=== PATIENT | female | born 1950 | race Two or more races ===

== ENCOUNTER 2017-03-17 23:30 | Emergency (ER) | payer OTHER ==
--- NOTE | 2017-03-17 23:55 | PDOC ---
History of Present Illness - General History Source: Patient Exam Limitations: No Limitations - History of Present Illness Initial Comments: 03/18/17 00:00 The patient is a 66 year old female with significant past medical history of hypertension, hyperlipidemia, and diabetes who presents to the ED for left wrist pain prior to arrival. Patient denies any radiation of pain. Denies any trauma to the area. Patient is right-hand dominant. The patient denies fever, chills, cough, SOB, chest pain, and palpitations. The patient denies abdominal pain, nausea, vomiting, and diarrhea. Allergies: NKDA Social History: No alcohol, tobacco, or drug use reported. Past Surgical History: cholecystectomy PCP: Dr. Sarah Brady <Juliann Patterson - Last Filed: 03/18/17 01:26> - General History Source: Patient <StevenEarl hewitt - Last Filed: 03/23/17 19:26> - General Chief Complaint: Pain, Acute Stated Complaint: LT ARM PAIN Time Seen by Provider: 03/17/17 23:53 Past History <Juliann Patterson - Last Filed: 03/18/17 01:26> - Past Medical History Diabetes: Yes HTN: Yes Hypercholesterolemia: Yes - Surgical History Cholecystectomy: Yes - Psycho/Social/Smoking Cessation Hx Suicidal Ideation: No Smoking Status: No Smoking History: Never smoked Number of Cigarettes Smoked Daily: 0 <Earl Olivier - Last Filed: 03/23/17 19:26> - Past Medical History Allergies/Adverse Reactions: Allergies Allergy/AdvReac Type Severity Reaction Status Date / Time No Known Allergies Allergy Verified 03/17/17 23:52 Home Medications: Ambulatory Orders Amlodipine Besylate [Norvasc -] 5 mg PO DAILY 06/20/12 Losartan/Hydrochlorothiazide [Hyzaar 50-12.5 Tablet] 1 each PO DAILY 06/20/12 Simvastatin [Zocor] 20 mg PO DAILY 06/20/12 Ibuprofen [Motrin -] 600 mg PO QID #28 tablet 10/10/15 Glipizide [Glucotrol Xl] 2.5 mg PO DAILY 03/17/17 Metformin HCl [Glucophage -] 500 mg PO BID 03/17/17 Ibuprofen 800 mg PO TID #30 tablet 03/18/17 Oxycodone HCl/Acetaminophen [Percocet 5-325 mg Tablet] 1 - 2 tab PO Q6H #20 tablet MDD 4 03/18/17 Review of Systems - Review of Systems Able to Perform ROS?: Yes Comments:: 03/18/17 00:00 CONSTITUTIONAL: Absent: fever, no chills, no fatigue EYES: Absent: visual changes ENT: Absent: ear pain, no sore throat CARDIOVASCULAR: Absent: chest pain, no palpitations RESPIRATORY: Absent: cough, no SOB GI: Absent: abdominal pain, no nausea, no vomiting, no constipation, no diarrhea GENITOURINARY: Absent: dysuria, no frequency, no hematuria MUSCULOSKELETAL: +L wrist pain Absent: back pain, no myalgia SKIN: Absent: rash NEURO: Absent: headache <Juliann Patterson - Last Filed: 03/18/17 01:26> *Physical Exam - Vital Signs Last Vital Signs Temp Pulse Resp BP Pulse Ox 98 F 79 20 175/90 99 03/17/17 23:54 03/17/17 23:54 03/17/17 23:54 03/17/17 23:54 03/17/17 23:54 - Physical Exam Comments: 03/18/17 00:01 GENERAL: Well-appearing, well-nourished. No apparent distress. HEENT: Normocephalic, atraumatic. PERRL, EOM intact. CARDIOVASCULAR: Normal S1, S2. Regular rate and rhythm. PULMONARY: Clear to auscultation bilaterally. ABDOMEN: Soft, non-distended, non-tender. EXTREMITIES: Decreased ROM of left wrist secondary to pain. Swelling from just above the left wrist to the distal forearm. No gross deformities. SKIN: Warm, dry. No rash NEUROLOGICAL: No focal neurological deficits. <Juliann Patterson - Last Filed: 03/18/17 01:26> Heart Score/ECG Review - ECG Impressions Comment:: 03/18/17 00:22 NSR @71bpm L axis deviation RBBB Abnormal ECG <Juliann Patterson - Last Filed: 03/18/17 01:26> Medical Decision Making - Medical Decision Making 03/23/17 19:25 Dr. Olivier: The scribe's documentation has been prepared under my direction and personally reviewed by me in its entirery. I confirm that the note above accurately reflects all work, treatment, procedures, and medical decision making performed by me. <Earl Olivier - Last Filed: 03/23/17 19:26> *DC/Admit/Observation/Transfer - Attestations Scribe Attestion: 03/18/17 00:01 Documentation prepared by Juliann Patterson, acting as medical record retrieval specialist for Earl Olivier MD/DO. <Juliann Patterson - Last Filed: 03/18/17 01:26> - Discharge Dispostion Admit: No <Earl Olivier - Last Filed: 03/23/17 19:26> Diagnosis at time of Disposition: Musculoskeletal pain, Wrist pain, left - Discharge Dispostion Disposition: HOME Condition at time of disposition: Stable - Prescriptions Prescriptions: Ibuprofen 800 mg PO TID #30 tablet Oxycodone HCl/Acetaminophen [Percocet 5-325 mg Tablet] 1 - 2 tab PO Q6H #20 tablet MDD 4 - Referrals Referrals: Nela Brady [Primary Care Provider] - Irvin Joe MD [Staff Physician] - - Patient Instructions Printed Discharge Instructions: DI for Musculoskeletal Pain, DI for Wrist Pain Additional Instructions: take medication as directed. Please follow up with your doctor for re- evaluation. Print Language: HEBREW
[2017-03-17] MEDS ORDERED: IBUPROFEN 400 MG TABLET (FP) PO ONE (23:56)
[2017-03-17 23:57] VITALS: BP 175/90; PULSE 79; TEMP 98; BMI 27.9
[2017-03-18] MEDS ORDERED: IBUPROFEN 400 MG TABLET (FP) PO ONE (00:15)
[2017-03-18] MEDS ORDERED: OXYCODONE/APAP 5/325MG COMBO TABLET PO ONE (02:17)
[2017-03-18] MEDS ORDERED: OXYCODONE/APAP 5/325MG COMBO TABLET ONE (02:26)
--- NOTE | 2017-03-18 13:06 | EKG ---
Test Reason : Blood Pressure : / mmHG Vent. Rate : 071 BPM Atrial Rate : 071 BPM P-R Int : 168 ms QRS Dur : 144 ms QT Int : 432 ms P-R-T Axes : 049 -35 018 degrees QTc Int : 469 ms NORMAL SINUS RHYTHM LEFT AXIS DEVIATION RIGHT BUNDLE BRANCH BLOCK ABNORMAL ECG WHEN COMPARED WITH ECG OF 08-JAN-2016 13:15, T WAVE INVERSION LESS EVIDENT IN ANTERIOR LEADS Confirmed by TERESA DE LA PAZ, MIRANDA ([id number]) on 03/18/2017 1:06:00 PM Referred By: Confirmed By:MIRANDA MOORE MD
--- NOTE | 2017-03-18 14:17 | PDOC ---
Patient Follow-up (Call Back) - Post ED Follow - Up Chief Complaint: wrist Condition at time of discharge: Stable Disposition at time of original discharge: HOME Reason for Call Back: Radiology (triquetral fracture message left on voicemail to call back)
== END 2017-03-18 02:35 | disposition home or self-care (01) ==
LOC: JER 23:30
DX: M25.532 Pain in left wrist (principal); I10 Essential (primary) hypertension; E11.9 Type 2 diabetes mellitus without complications; Z79.84 Long term (current) use of oral hypoglycemic drugs; E78.5 Hyperlipidemia, unspecified
CPT/HCPCS: 73090-TC-LT; 73110-TC-LT; 73130-TC-LT; 93005; 93010; 99282-25

== ENCOUNTER 2022-03-22 20:47 | Emergency (ER) | payer OTHER ==
[2022-03-22 20:56] VITALS: BMI 27.9
[2022-03-22] MEDS ORDERED: ACETAMINOPHEN 1000 MG/100 ML BAG IVPB ONE (21:35)
[2022-03-22] MEDS ORDERED: SODIUM CHLORIDE 0.9% 500 ML INFUS.BAG IV ONE (21:35)
[2022-03-22 21:40] LABS: VENOUS BASE EXCESS 0.7 mmol/L (-2-2); VENOUS O2 SATURATION 74.3 % (70-80); VENOUS PCO2 40.9 mmHg (38-52); VENOUS PH 7.41 (7.310-7.410)
[2022-03-22] MEDS ORDERED: ACETAMINOPHEN INJECTION 100 ML IVPB ONE (21:43)
[2022-03-22 21:58] LABS: BASO % 0.4 % (0-2.0); EOS % 0.6 % (0-4.5); HEMATOCRIT 36.1 % (32.4-45.2); HEMOGLOBIN 12.1 GM/dL (10.7-15.3); LYMPH % 11.1 % (8-40); MCH 27.6 pg (25.7-33.7); MCHC 33.6 g/dl (32.0-36.0); MEAN CELL VOLUME 82.4 fl (80-96); MEAN PLT VOLUME 8.4 fl (7.5-11.1); MONO % 14.9 % (3.8-10.2); PLATELET COUNT 260 10^3/uL (134-434); RBC 4.38 M/mm3 (3.60-5.2); RDW 16.1 % (11.6-15.6); WHITE BLOOD COUNT 6.8 K/mm3 (4.0-10.0)
[2022-03-22 22:02] LABS: CALCIUM 9.6 mg/dL (8.5-10.1)
[2022-03-22 22:03] LABS: ALBUMIN 3.9 g/dl (3.4-5.0); BLOOD UREA NITROGEN 13.9 mg/dL (7-18)
[2022-03-22 22:05] LABS: EPI CELLS 2 /uL (0-25.1); HYALINE CASTS 0 /uL (0-3.1); PH,URINE 5.5 (5.0-8.0); URINE APPEARANCE CLEAR; URINE BACTERIA 99 /uL (0-1359); URINE BILIRUBIN NEGATIVE (NEGATIVE); URINE COLOR YELLOW; URINE GLUCOSE (UA) NEGATIVE (NEGATIVE); URINE KETONE NEGATIVE (NEGATIVE); URINE LEUK ESTERASE NEGATIVE (NEGATIVE); URINE NITRITE NEGATIVE (NEGATIVE); URINE PROTEIN 1+ (NEGATIVE); URINE RBC 2 /uL (0-23.9); URINE UROBILINOGEN 0.2 mg/dL (0.2-1.0); URINE WBC 1 /uL (0-25.8)
[2022-03-22 22:06] LABS: CREATININE 1.2 mg/dL (0.55-1.3)
[2022-03-22 22:07] LABS: INR 1.09 (0.83-1.09); PROTHROMBIN TIME (PATIENT) 12.5 SEC (9.7-13.0)
[2022-03-22 22:08] LABS: BILIRUBIN,TOTAL 0.5 mg/dL (0.2-1); TOT PROT 8.4 g/dl (6.4-8.2)
[2022-03-22 22:10] LABS: ACTIVATED PTT 27.1 SECONDS (25.2-36.5)
[2022-03-22] MEDS ORDERED: DEXAMETHASONE SOD PHOSPHATE 10 MG/1 ML VIAL IVPUSH ONE (22:15)
[2022-03-22] MEDS ORDERED: DEXAMETHASONE SOD PHOSPHATE 10 MG/1 ML VIAL ONE (22:41)
[2022-03-22 23:06] VITALS: BP 140/80; PULSE 86; TEMP 99.2
== END 2022-03-22 23:06 | disposition home or self-care (01) ==
LOC: JER 20:47
PROC: 3E0333Z Introduction of Anti-inflammatory into Peripheral Vein, Percutaneous Approach (ICD-10-PCS; principal; 2022-03-22)
PROC: 3E033GC Introduction of Other Therapeutic Substance into Peripheral Vein, Percutaneous Approach (ICD-10-PCS; 2022-03-22)
DX: U07.1 COVID-19 (principal)
CPT/HCPCS: 0241U-QW; 36415; 71045-TC-FY; 80053; 81003; 82550; 82803; 83605; 84484; 85025; 85610; 85730; 87040; 87086; 93005; 93010; 96374; 96375; 99285-25; J1100